=== PATIENT | male | born 1960 | race Hispanic/Latino ===

== ENCOUNTER 2017-07-11 10:36 | Emergency (ER) | payer BC ==
[~2017-07-11] VITALS: Ht 162.6 cm; Wt 88.0 kg
[~2017-07-11 10:36] MED LIST: FLEXERIL PO; NAPROSYN500 MG PO; ULTRAM50 M1 PO
[2017-07-11] MEDS ORDERED: NEO/POLY/BA1 OU (11:16)
[2017-07-11 11:25] VITALS: BP 149/83
== END 2017-07-11 11:25 | disposition home or self-care (01) | DRG 125 ==
LOC: ED 10:36
DX: H01.9 Unspecified inflammation of eyelid (principal); E11.9 Type 2 diabetes mellitus without complications; I10 Essential (primary) hypertension

== ENCOUNTER 2019-07-16 20:37 | Emergency (ER) | payer BC ==
[~2019-07-16 20:37] MED LIST changes: +NEO/POLY/BA1 OU
[2019-07-16] MEDS ORDERED: METOPROL TAR25 MG PO (20:51)
[2019-07-16] MEDS ORDERED: METFORMIN HCL500 M1 PO (20:52)
[2019-07-16 21:46] VITALS: BP 175/90
== END 2019-07-16 21:46 | disposition home or self-care (01) | DRG 880 ==
LOC: ED 20:37
DX: F41.9 Anxiety disorder, unspecified (principal); E11.9 Type 2 diabetes mellitus without complications; I10 Essential (primary) hypertension; Z79.84 Long term (current) use of oral hypoglycemic drugs

== ENCOUNTER 2020-11-20 08:47 | Day surgery (SDC) | payer BC ==
[~2020-11-20] VITALS: Ht 165.1 cm; Wt 90.7 kg
[~2020-11-20 08:47] MED LIST changes: +LIPITOR20 M1 PO; +LOSARTAN POTASS50 MG PO; +METFORMIN HCL500 M1 PO; +METOPROL TAR25 MG PO; +VITAMIN B-121000 MC1 SL
[2020-11-20 12:16] VITALS: BP 151/79
== END 2020-11-20 11:35 | disposition home or self-care (01) | DRG 951 ==
LOC: ENDO 08:47
PROVIDERS: ATTEND Surgery
PROC: 0DBP8ZX Excision of Rectum, Via Natural or Artificial Opening Endoscopic, Diagnostic (ICD-10-PCS; principal; 2020-11-20)
PROC: 0DBL8ZX Excision of Transverse Colon, Via Natural or Artificial Opening Endoscopic, Diagnostic (ICD-10-PCS; 2020-11-20)
DX: Z12.11 Encounter for screening for malignant neoplasm of colon (principal); D12.3 Benign neoplasm of transverse colon; D12.8 Benign neoplasm of rectum; I10 Essential (primary) hypertension; E11.9 Type 2 diabetes mellitus without complications; E78.5 Hyperlipidemia, unspecified; Z79.84 Long term (current) use of oral hypoglycemic drugs